=== PATIENT | female | born 1990 | race Caucasian/White ===

== ENCOUNTER 2022-05-11 11:08 | Emergency (ER) | payer SELFPAY ==
--- NOTE | ~2022-05-11 | XR_ITS ---
EXAMINATION: XR thoracic spine 3V DATE: 05/11/2022 12:52 INDICATION: Mid back pain post fall while rollerblading TECHNIQUE: One AP, lateral and lateral swimmer's views of the thoracic spine were obtained. COMPARISON: None. FINDINGS: 9 degrees levocurvature between T1 and T6. Sagittal alignment is normal. 20% anterior vertebral body height loss at T5 and 10% anterior vertebral body height loss at T6 consistent with age-indeterminate compression fractures. Remaining vertebral body heights are normal. Visualized portions of the lungs are clear with no pleural effusion or pneumothorax. Cardiomediastinal silhouette is normal. IMPRESSION: 1. Age-indeterminate T5 compression fracture with 20% anterior vertebral body height loss and at T6 w ith 10% anterior vertebral body height loss. Reviewed, dictated and finalized at location A. INFRASTRUCTURE ENGINEER IMPRESSION: 1. Age-indeterminate T5 compression fracture with 20% anterior vertebral body h eight loss and at T6 with 10% anterior vertebral body height loss.
--- NOTE | ~2022-05-11 | XR_ITS ---
EXAMINATION: XR elbow LT min 3V DATE: 05/11/2022 12:52 INDICATION: Radial head tenderness at the left elbow post fall while rollerblading TECHNIQUE: Anteroposterior, two oblique and lateral views of the left elbow were obtained. COMPARISON: None. FINDINGS: Alignment is normal. Subtle nondisplaced extra-articular fracture at the left radial head neck juncti on. Joint spaces are normal. There is an elbow joint effusion with displacement of the anterior and p osterior fat pads. Soft tissues are otherwise unremarkable. IMPRESSION: 1. Nondisplaced extra articular fracture at the left radial head neck junction which remains in anato taniya alignment. 2. Left elbow joint effusion. Reviewed, dictated and finalized at location A. ACTOR MACHINE OPERATOR IMPRESSION: 1. Nondisplaced extra articular fracture at the left radial head neck junction which remains in anatomic alignment. 2. Left elbow joint effusion.
[2022-05-11 11:10] VITALS: BP 145/87; PULSE 97; RESP 18; TEMP 37.7; O2SAT 100
[2022-05-11] MEDS: KETOROLAC 30 MG/ML VIAL (*BKC) IM (12:31)
--- NOTE | 2022-05-11 12:51 | ED.BACK ---
HPI - Back Pain/Injury General Chief Complaint: Back Pain/Injury Stated Complaint: back inj Time Seen by Provider: 05/11/22 12:00 History of Present Illness HPI Narrative: Patient is a 32-year-old female who presents ER with complaints of back pain and elbow pain. Patient was rollerblading this morning when she slipped and fell landing on the ground. She had sudden onset pain in her mid back. She also babatunde her elbow while she fell. No numbness or tingling in the arms or legs. Ambulatory without difficulty. Has increased pain with deep breath and with certain movements. Related Data Allergies Allergy/AdvReac Type Severity Reaction Status Date / Time amoxicillin Allergy Intermediate HIVES Verified 05/11/22 11:13 Review of Systems Review of Systems: All systems reviewed & are unremarkable except as noted in HPI and below Constitutional: Constitutional: Denies chills, Denies fatigue and Denies fever(s) Cardiovascular: Cardiovascular: Denies chest pain and Denies rapid heart rate Gastrointestinal: Gastrointestinal: Denies abdominal pain, Denies nausea and Denies vomiting Musculoskeletal: Musculoskeletal: Reports back pain, Reports arthralgias and Denies joint swelling Integumentary/Breasts: Skin/Breast: Denies erythema and Denies rash Neurologic: Denies syncope, Denies headache(s), Denies focal weakness and Denies numbness PMFSH Past Medical History Medical History (Updated 05/11/22 @ 14:11 by Froilan Zamora MD) Healthy female adult Surgical History Surgical History (Updated 05/11/22 @ 12:53 by Froilan Zamora MD) History of hip surgery Exam Narrative: GENERAL: Well-appearing, well-nourished, and in no acute distress. HEAD: Normocephalic, atraumatic. CHEST: Clear to auscultation. No respiratory distress. HEART: Regular rate and rhythm. Normal peripheral pulses. ABDOMEN: Soft, nontender, nondistended. Back: Tender palpation mid thoracic around T7 without step-off, no abrasion or bruising. No reproducible paraspinal muscular tenderness in the T/L-spine. No midline L-spine tenderness.. EXTREMITIES: Normal range of motion. No edema. Tender palpation over the left radial head but supination pronation preserved as are flexion extension at the elbow. SKIN: Warm, dry, no rash. NEURO: No focal deficits. Alert and oriented x3. PSYCH: Normal mood and affect. Course Vital Signs Vital signs: Vital Signs Temperature 100 F H 05/11/22 11:10 Pulse Rate 97 05/11/22 11:10 Respiratory Rate 18 05/11/22 11:10 Blood Pressure 145/87 H 05/11/22 11:10 Pulse Oximetry 100 05/11/22 11:10 Temperature 100 F H 05/11/22 11:10 Pulse Rate 97 05/11/22 11:10 Respiratory Rate 18 05/11/22 11:10 Blood Pressure 145/87 H 05/11/22 11:10 Pulse Oximetry 100 05/11/22 11:10 MDM - Back Pain/Injury Imaging Data Radiologist's impression: ITS Impressions Elbow X-Ray 05/11/22 12:54 IMPRESSION: 1. Nondisplaced extra articular fracture at the left radial head neck junction which remains in anatomic alignment. 2. Left elbow joint effusion. Thoracic Spine X-Ray 05/11/22 12:57 IMPRESSION: 1. Age-indeterminate T5 compression fracture with 20% anterior vertebral body height loss and at T6 with 10% anterior vertebral body height loss. Discharge Plan Discharge Clinical Impression: Vertebral compression fracture, Closed fracture of neck of left radius Patient Disposition: Home, Self-Care Condition: Stable Instructions: Elbow Fracture (ED), Vertebral Compression Fracture (ED) Additional Instructions: You have a nondisplaced fracture of the left radial neck. You were placed in sling for comfort. Follow-up with orthopedic surgery for further evaluation. Take Tylenol and ibuprofen as needed for pain. You have been given a small amount of Tylenol with hydrocodone to help with breakthrough pain. Additionally you have vertebral compression fracture at the T5/6 region of
== END 2022-05-11 14:39 | disposition home or self-care (01) ==
PROVIDERS: Emergency Provider Emergency Medicine
DX: S22.050A Wedge compression fracture of T5-T6 vertebra, initial encounter for closed fracture (principal); S52.135A Nondisplaced fracture of neck of left radius, initial encounter for closed fracture; V00.111A Fall from in-line roller-skates, initial encounter; Y93.51 Activity, roller skating (inline) and skateboarding
CPT/HCPCS: 72072; 73080; 96372; 99284; A4565; J1885

== ENCOUNTER → 2022-06-19 12:22 | Outpatient (CLI) | payer SELFPAY ==
--- NOTE | ~2022-06-19 | XR_ITS ---
Thoracic spine: Clinical Indication: T5-T6 fracture COMPARISON: 05/11/2022 AP and lateral views were performed. Mild compression deformity of what is probably T5 again noted. No subluxation identified. The interve rtebral disc spaces appear normal. Paravertebral soft tissues appear normal. Impression: Mild compression deformity superior endplate of what is probably T5, similar to prior exam. Reviewed, dictated and finalized at location . [employer] Impression: Mild compression deformity superior endplate of what is probably T5, similar to prior exam.
== END ==
PROVIDERS: PCP Nurse Practitioner Adult Health; Visit Provider Nurse Practitioner Adult Health
DX: S22.059A Unspecified fracture of T5-T6 vertebra, initial encounter for closed fracture (principal); X58.XXXA Exposure to other specified factors, initial encounter
CPT/HCPCS: 72070

== ENCOUNTER 2023-01-17 15:00 | Observation (INO) | payer OTHER, SELFPAY ==
[2023-01-17] VITALS (20 sets, daily range): BP systolic 109–136; BP diastolic 59–84; PULSE 91–115; RESP 12–25; TEMP 36.8–38.3; O2SAT 97–100; BMI 27.4
--- NOTE | ~2023-01-17 | XR_ITS ---
EXAMINATION: XR chest 2V Exam Date/Time: 01/17/2023 19:05 CDT HISTORY: dyspnea SOB WITH EXERTION SINCE YESTERDAY Comparison: None. RESULT: Lines, tubes, and devices: None. Lungs and pleura: Clear. Cardiomediastinal silhouette: Normal. Other: No acute osseous or upper abdominal finding. IMPRESSION: No acute cardiopulmonary process. Reviewed, dictated and finalized at location K.
--- NOTE | ~2023-01-17 | US_ITS ---
EXAMINATION: US renal BI DATE: 01/17/2023 22:29 INDICATION: pyelo TECHNIQUE: Multiple grayscale and Doppler ultrasound images of the kidneys were obtained. COMPARISON: None. FINDINGS: The right kidney measures 10.5 x 4.4 x 5.1 cm. The left kidney measures 10.3 x 4.9 x 6.0 cm. The kidn eys demonstrate normal parenchymal echogenicity. There is no hydronephrosis. The bladder is normal. IMPRESSION: Unremarkable renal sonogram findings. Reviewed, dictated and finalized at location K.
--- NOTE | 2023-01-17 15:26 | ECG_ITS ---
Measurements Intervals [place] Rate: 106 P: 24 NH: 117 QRS: 56 QRSD: 77 T: -24 QT: 327 QTc: 435 Interpretive Statements SINUS TACHYCARDIA WITH SHORT NH INTERVAL NONSPECIFIC ST & T-WAVE ABNORMALITY- ANTEROLAT/INF LEADS BASELINE ARTIFACT- I, II, III, AVR, AVL ABNORMAL ECG NO PREVIOUS ECG AVAILABLE FOR COMPARISON Electronically Signed On 01-17-2023 15:37:05 CDT by Dallas Hunt D.O.
[2023-01-17 15:48] LABS: Hematocrit 39.8 % (37.0-47.0); Hemoglobin 13.3 g/dL (12.0-15.0); Mean Corpuscular HGB Conc 33.4 g/dl (32-36); Mean Corpuscular Hemoglobin 29.6 pg (26-34); Mean Corpuscular Volume 88.6 fl (80-100); Mean Platelet Volume 9.2 fl (7.4-10.4); Platelet Count Result 324 k/mm3 (150-375); Red Blood Count 4.49 M/mm3 (4.2-5.4); White Blood Count 18.2 K/mm3 (4.5-10.0)
[2023-01-17 16:02] LABS: Alanine Aminotransferase 18 U/L (6-35); Albumin Level 4.7 g/dL (3.5-5.1); Alkaline Phosphatase 60 U/L (38-126); Anion Gap 9 mmol/L (8-16); Aspartate Amino Transferase 25 U/L (14-36); Bilirubin,Total 2.3 mg/dL (0.2-1.3); Blood Urea Nitrogen 14 mg/dL (7-17); Carbon Dioxide 24 mmol/L (22-30); Chloride 99 mmol/L (98-107); Estimated CRCL calculation 98 ml/min; Estimated Glomerular Filt Rate > 60; Glucose 99 mg/dL (65-110); Potassium 4.2 mmol/L (3.4-5.0); Sodium 132 mmol/L (137-145)
[2023-01-17 16:23] LABS: Band Neutrophils Percent 7 % (0-6); Monocytes Absolute Manual 0.18 K/mm3 (0.1-0.90); Monocytes Percent Manual 1 % (3-9); Neutrophils Absolute Manual 18.01 K/mm3 (1.7-7.2); Neutrophils Percent Manual 92 % (46-73); Platelet Estimate Adequate (Adequate); Schistocytes None Seen (NORMAL); Total Cells Counted 100
--- NOTE | 2023-01-17 17:21 | ED.GENADULT ---
HPI - General Adult General Chief complaint: Unspecified Stated complaint: SOB/vomiting/pre-syncope Time Seen by Provider: 01/17/23 16:38 History of Present Illness HPI narrative: Patient is a 32-year-old female who presents to the ER with fatigue and body aches. Patient was diagnosed with a UTI yesterday. She was started on Macrobid. She has been taking Azo. Dysuria has decreased. She then began feeling body aches as well as joint aches today. She feels slightly short of breath. She felt lightheaded as well. She has some mild aching into her back bilaterally left greater than right. She also experienced some vomiting. No alleviating factors. Related Data Allergies Allergy/AdvReac Type Severity Reaction Status Date / Time amoxicillin Allergy Intermediate HIVES Verified 01/17/23 15:01 Review of Systems Review of Systems: All systems reviewed & are unremarkable except as noted in HPI and below Constitutional: Constitutional: Denies chills, Reports fatigue and Reports fever(s) ENT: Denies nasal congestion and Denies sore throat Cardiovascular: Cardiovascular: Denies chest pain, Denies rapid heart rate and Denies radiating jaw, neck or arm pain Respiratory: Respiratory: Denies cough, Reports dyspnea and Denies wheezing Gastrointestinal: Gastrointestinal: Denies abdominal pain, Denies diarrhea, Reports nausea and Reports vomiting Genitourinary: Genitourinary: Reports nocturia, Reports dysuria, Denies pelvic pain and Reports flank pain Musculoskeletal: Musculoskeletal: Reports back pain, Reports arthralgias and Denies joint swelling PMFSH Past Medical History Medical History (Updated 01/17/23 @ 19:51 by Froilan Zamora MD) Compression fracture of T5 vertebra with routine healing Healthy female adult Surgical History Surgical History History of hip surgery Social History Social History Smoking status: Never smoker Exam Narrative: GENERAL: Well-appearing, well-nourished, and in no acute distress. HEAD: Normocephalic, atraumatic. EYES: PERRL and EOMI. ENT: Mucous membranes moist. CHEST: Clear to auscultation. No respiratory distress. HEART: Tachycardic and regular. Normal peripheral pulses. ABDOMEN: Soft, nontender, nondistended. No CVA tenderness. EXTREMITIES: Normal range of motion. No edema. SKIN: Warm, dry, no rash. NEURO: Alert and oriented x3. PSYCH: Normal mood and affect. Course Course Emergency Course: Admit for observation IV antibiotics. Patient with much more systemic symptoms of her UTI. Will start on IV antibiotics. Accepted by the hospitalist service. Vital Signs Vital signs: Vital Signs Temperature 98.2 F 01/17/23 15:22 Pulse Rate 112 H 01/17/23 15:22 Respiratory Rate 20 01/17/23 15:22 Blood Pressure 126/65 01/17/23 15:22 Pulse Oximetry 100 01/17/23 15:22 Oxygen Delivery Room Air 01/17/23 15:22 Temperature 101.0 F H 01/17/23 17:14 Pulse Rate 108 H 01/17/23 19:45 Respiratory Rate 20 01/17/23 19:45 Blood Pressure 109/59 L 01/17/23 19:45 Pulse Oximetry 97 01/17/23 19:45 Oxygen Delivery Room Air 01/17/23 15:22 Medical Decision Making Vital Signs Vital Signs: Vital Signs Temperature 98.2 F 01/17/23 15:22 Pulse Rate 112 H 01/17/23 15:22 Respiratory Rate 01/17/23 15:22 Blood Pressure 126/65 01/17/23 15:22 Pulse Oximetry 100 01/17/23 15:22 Oxygen Delivery Room Air 01/17/23 15:22 Temperature 101.0 F H 01/17/23 17:14 Pulse Rate 108 H 01/17/23 19:45 Respiratory Rate 01/17/23 19:45 Blood Pressure 109/59 L 01/17/23 19:45 Pulse Oximetry 97 01/17/23 19:45 Oxygen Delivery Room Air 01/17/23 15:22 Lab Data 01/17/23 15:38 01/17/23 15:38 Labs: Lab Results 01/17/23 01/17/23 Range/Units 15:38 17:40 WBC 18.2 H (4.5-10.0) K/mm3 RBC
[2023-01-17] MEDS: SODIUM CHLORIDE 0.9% IV 1,000 ML 999 ML IV CONT (17:31)
[2023-01-17] MEDS: ACETAMINOPHEN 325 MG TABLET 650 MG PO (17:31)
[2023-01-17 17:59] LABS: Lactic Acid Reflex 1.1 mmol/L (0.7-2.0)
[2023-01-17 18:26] LABS: Appearance Urine Clear (Clear); Bacteria Urine None Seen /hpf; Bilirubin Urine Negative (Negative); Blood Urine Negative (Negative); Color Urine Dark Yellow (Yellow); Glucose Urine UA Negative (Negative); Hyaline Casts Urine Present /lpf; Ketones Urine 2+ mg/dL (Negative); Leukocyte Esterase Ur Trace LEU/UL (Negative); Nitrate Urine Positive (Negative); Non Pathogenic Casts 0-2; Protein Urine Negative (Negative); RBC Urine 0-2 /hpf (0-2); Squamous Epithelial Cell Urine None seen /hpf (Few); WBC Urine 0-5 /hpf
[2023-01-17 18:28] LABS: Add Urine Microscopic? YES
[2023-01-17] MEDS: LACTATED RINGERS 1,000 ML 125 ML IV CONT (19:36)
--- NOTE | 2023-01-17 20:07 | PM.IMHP ---
H&P: HPI History of Present Illness Date/Time: 01/17/23 20:07 Chief Complaint: Nausea, fatigue a body aches and chills. Narrative: Patient is a 32-year-old female with no significant past medical history who presents to the ER with fatigue and body aches.? Patient was in her usual state of health until 2 days ago; she was diagnosed with a UTI yesterday.? She was started on Macrobid.? The addition, she had been taking Azo, with improvement of her dysuria. ? She then began feeling body aches as well as joint aches today.? She feels slightly short of breath.? She felt lightheaded as well.? She has some mild aching into her back bilaterally left greater than right.? She also experienced some bilious vomiting.? No alleviating factors. On arrival to the emergency department, the patient is presenting with the following vital signs: A temperature of 101.5? F, pulse rate 112, respiration 20, blood pressure 109/59-126/65, pulse oximetry 97-100% on room air. Her CBC shows a WBC of 18.2, hemoglobin 13.3, hematocrit 39.8 and a platelet count of 3 to 4. Her chemistry shows a sodium of 132, potassium of 4.2, chloride 99, bicarbonate 24, BUN 14, creatinine 0.7 and glucose 99. Urinalysis shows 2+ ketone, positive nitrate, trace leukocyte esterase, RBC 0-2, WBC 0-5, no bacteria. A renal ultrasound was unremarkable. Chest x-ray did not show any acute cardiopulmonary process. Patient was started on Rocephin and pain management. The hospital medicine service was consulted for evaluation and further management. Review of Systems Review of Systems: All systems reviewed & are unremarkable except as noted in HPI and below Constitutional: Constitutional: Denies chills, Reports fatigue and Reports fever(s) ENT: Denies nasal congestion and Denies sore throat Cardiovascular: Cardiovascular: Denies chest pain, Denies rapid heart rate and Denies radiating jaw, neck or arm pain Respiratory: Respiratory: Denies cough, Reports dyspnea and Denies wheezing Gastrointestinal: Gastrointestinal: Denies abdominal pain, Denies diarrhea, Reports nausea and Reports vomiting Genitourinary: Genitourinary: Reports nocturia, Reports dysuria, Denies pelvic pain and Reports flank pain Musculoskeletal: Musculoskeletal: Reports back pain, Reports arthralgias and Denies joint swelling [facility] Past Medical History Medical History Compression fracture of T5 vertebra with routine healing Healthy female adult Surgical History Surgical History History of hip surgery Social History Social History Smoking status: Never smoker Second hand tobacco smoke exposure: No Alcohol intake: current Drinks per week: 3 Substance use: never Substance use type: does not use Lack of Transportation: No Lack of Food: Never True Current Housing: I Have Housing Concerned About Future Housing: No Difficulty Paying Gas/Electric Bills: No Difficulty Paying for Meds: No Currently Unemployed: No Education: Bachelor's Degree Difficulty w/ Childcare or Family Care: No Spiritual care concerns: No Meds Home Medications and Allergies Home Medications Medication Instructions Recorded Confirmed Type nitrofurantoin 100 mg PO BID 01/17/23 01/17/23 History monohydrate/macrocrystals 100 mg capsule norgestimate-ethinyl estradiol 1 tablet PO DAILY 01/17/23 01/17/23 History 0.18 mg/0.215mg/0.25mg-35 mcg(28)tablet Allergies Allergy/AdvReac Type Severity Reaction Status Date / Time amoxicillin Allergy Intermediate HIVES Verified 01/17/23 15:01 Vital Signs Vital Signs - 24 hr 01/17/23 15:22 01/17/23 16:26 01/17/23 16:28 Temperature 98.2 F Pulse Rate 112 H 110 H 114 H Respiratory Rate 20 Blood Pressure 126/65 121/61 128/74 Pulse Oximetry 100 Oxygen Delivery Room Air 01/17/23
[2023-01-17] MEDS: HYDROcodone/acetaminophen (*CRX) 5-325 MG TABLET 1 TAB PO (22:42)
[2023-01-18] MEDS: LACTATED RINGERS 1,000 ML 125 ML IV CONT ×3 (03:54→20:58)
[2023-01-18 06:00] VITALS: BP 134/56; PULSE 105; RESP 14; TEMP 37.1; O2SAT 99
[2023-01-18 06:20] LABS: Hematocrit 36.2 % (37.0-47.0); Hemoglobin 12.1 g/dL (12.0-15.0); Mean Corpuscular HGB Conc 33.4 g/dl (32-36); Mean Corpuscular Hemoglobin 29.8 pg (26-34); Mean Corpuscular Volume 89.2 fl (80-100); Mean Platelet Volume 9.6 fl (7.4-10.4); Platelet Count Result 271 k/mm3 (150-375); Red Blood Count 4.06 M/mm3 (4.2-5.4); Red Cell Distribution Width 12.1 % (11.5-14.5); White Blood Count 14.9 K/mm3 (4.5-10.0)
[2023-01-18 06:35] LABS: Anion Gap 6 mmol/L (8-16); Blood Urea Nitrogen 8 mg/dL (7-17); Calcium 8.5 mg/dL (8.4-10.2); Carbon Dioxide 23 mmol/L (22-30); Chloride 105 mmol/L (98-107); Estimated CRCL calculation 113 ml/min; Estimated Glomerular Filt Rate > 60; Glucose 118 mg/dL (65-110); Sodium 134 mmol/L (137-145)
[2023-01-18 08:43] LABS: Vitamin D 25 Hydroxy 40.7 ng/mL
[2023-01-18] MEDS: ENOXAPARIN 40 MG/0.4 ML SYRINGE SUB-Q (09:09)
[2023-01-18] MEDS: ACETAMINOPHEN 325 MG TABLET 650 MG PO ×2 (09:15→20:57)
--- NOTE | 2023-01-18 09:20 | PM.IMPN ---
Progress Note: A&P Assessment and Plan (1) Pyelonephritis: Code(s): N12 - Tubulo-interstitial nephritis, not specified as acute or chronic Status: Acute Assessment and Plan: Patient reports back pain and CVA tenderness are improving. The fever has broke patient feels better. Mild nausea but no vomiting. Continue IV fluids continue Rocephin pending urine culture blood cultures. Repeat labs in the a.m. upon discharge will stop nitrofurantoin and prescribed antibiotics with better renal penetration. (2) Compression fracture of T5 vertebra with routine healing: Code(s): S22.050D - Wedge compression fracture of T5-T6 vertebra, subsequent encounter for fracture with routine healing Status: Acute Assessment and Plan: Patient aware of wedge compression fracture stated it was acute event in May last year. Vitamin D normal. Time Spent With Patient Time with patient: 25 - 35 minutes Subjective Date/time seen: 01/18/23 08:15 Interval history: 01/18 Rounding: This is a 32-year-old female patient admitted to the hospital due to urinary tract infection with CVA tenderness, fever, tachycardia, elevated white blood cell count. Patient has normal lactic acid. Blood cultures drawn and are pending. Urine culture is pending. Patient is on Rocephin IV. IV fluids. Patient complains of nausea without vomiting states that it is better today than it was yesterday. She reports mild left flank pain with mild bilateral CVA tenderness on exam. Renal ultrasound unremarkable. Review of Systems Review of Systems: All systems reviewed & are unremarkable except as noted in HPI and below Exam Narrative: GENERAL: Well-appearing, well-nourished, and in no acute distress. HEAD: Normocephalic, atraumatic. EYES: PERRL and EOMI. ENT: Mucous membranes moist. CHEST: Clear to auscultation. No respiratory distress. HEART: Tachycardic and regular. Normal peripheral pulses. ABDOMEN: Soft, nontender, nondistended. Bilateral CVA tenderness. EXTREMITIES: Normal range of motion. No edema. SKIN: Warm, dry, no rash. NEURO: Alert and oriented x3. PSYCH: Normal mood and affect. Objective Data Vital Signs Vital Signs: Vital Signs - 24 hr 01/17/23 15:22 01/17/23 16:26 01/17/23 16:28 Temperature 36.8 C Pulse Rate 112 H 110 H 114 H Respiratory Rate 20 Blood Pressure 126/65 121/61 128/74 Pulse Oximetry 100 Oxygen Delivery Room Air 01/17/23 16:29 01/17/23 16:44 01/17/23 16:54 Temperature Pulse Rate 115 H 101 H 110 H Respiratory Rate 13 15 Blood Pressure 111/73 Pulse Oximetry 100 100 Oxygen Delivery 01/17/23 17:14 01/17/23 18:14 01/17/23 17:00 Temperature 38.3 C H Pulse Rate 102 H 107 H 109 H Respiratory Rate 18 15 22 H Blood Pressure 128/84 125/67 Pulse Oximetry 100 100 99 Oxygen Delivery 01/17/23 17:01 01/17/23 17:37 01/17/23 17:45 Temperature Pulse Rate 106 H 112 H 100 Respiratory Rate 22 H 19 12 Blood Pressure 128/84 Pulse Oximetry 100 100 Oxygen Delivery 01/17/23 18:13 01/17/23 18:14 01/17/23 18:15 Temperature Pulse Rate 111 H 111 H 91 Respiratory Rate 19 13 14 Blood Pressure 125/67 Pulse Oximetry 99 99 99 Oxygen Delivery 01/17/23 18:30 01/17/23 18:31 01/17/23 18:47 Temperature Pulse Rate 111 H 113 H 110 H Respiratory Rate 22 H 25 H 20 Blood Pressure 136/74 Pulse Oximetry 98 99 97 Oxygen Delivery 01/17/23 19:45 01/17/23 20:18 01/17/23 21:30 Temperature 36.8 C Pulse Rate 108 H 110 H 100 Respiratory Rate 20 14 16 Blood Pressure 109/59 L 115/68 116/65 Pulse Oximetry 97 97 99 Oxygen Delivery 01/18/23 06:00 Temperature 37.1 C Pulse Rate 105 H Respiratory Rate 14 Blood Pressure 134/56 L Pulse Oximetry 99 Oxygen Delivery Intake/Output Intake/Output: Intake & Output 01/15/23 01/16/23 01/17/23 01/18/23 23:59 23:59 23:59 23:59 Intake Total 1050 1240 Output Total 350 1600 Balance 700 -36
[2023-01-18 14:00] VITALS: BP 110/76; PULSE 93; RESP 18; TEMP 36.1; O2SAT 99
[2023-01-18 22:00] VITALS: BP 112/82; PULSE 90; RESP 16; TEMP 36.6; O2SAT 100
[2023-01-19 06:00] VITALS: BP 112/80; PULSE 88; RESP 16; TEMP 36.4; O2SAT 98
[2023-01-19 07:38] LABS: Hematocrit 34.9 % (37.0-47.0); Hemoglobin 11.5 g/dL (12.0-15.0); Mean Corpuscular Hemoglobin 29.8 pg (26-34); Mean Corpuscular Volume 90.4 fl (80-100); Mean Platelet Volume 9.7 fl (7.4-10.4); Platelet Count Result 273 k/mm3 (150-375); Red Blood Count 3.86 M/mm3 (4.2-5.4); Red Cell Distribution Width 12.3 % (11.5-14.5); White Blood Count 6.7 K/mm3 (4.5-10.0)
[2023-01-19 07:53] LABS: Alanine Aminotransferase 16 U/L (6-35); Albumin Level 3.8 g/dL (3.5-5.1); Alkaline Phosphatase 53 U/L (38-126); Anion Gap 4 mmol/L (8-16); Aspartate Amino Transferase 22 U/L (14-36); Bilirubin,Total 0.5 mg/dL (0.2-1.3); Blood Urea Nitrogen 7 mg/dL (7-17); Calcium 8.5 mg/dL (8.4-10.2); Carbon Dioxide 28 mmol/L (22-30); Chloride 105 mmol/L (98-107); Estimated CRCL calculation 113 ml/min; Estimated Glomerular Filt Rate > 60; Glucose 89 mg/dL (65-110); Potassium 4.1 mmol/L (3.4-5.0); Sodium 137 mmol/L (137-145)
[2023-01-19] MEDS: ENOXAPARIN 40 MG/0.4 ML SYRINGE SUB-Q (08:41)
--- NOTE | 2023-01-19 09:47 | PM.DS ---
DS: Admitting Diagnosis Discharge Date 01/19/2023 Admitting Diagnosis Pyelonephritis Compression fracture of T5 vertebra with routine healing DS: Discharge Diagnosis Discharge Diagnosis (1) Pyelonephritis: Code(s): N12 - Tubulo-interstitial nephritis, not specified as acute or chronic Status: Acute (2) Compression fracture of T5 vertebra with routine healing: Code(s): S22.050D - Wedge compression fracture of T5-T6 vertebra, subsequent encounter for fracture with routine healing Status: Acute DS: Summary Hospital Course Reason for hospitalization: This is a previously healthy 32-year-old female patient admitted to the hospital due to pyelonephritis worsening on oral antibiotics. Hospital Course: Patient had started treatment for urinary tract infection with Macrobid 2 days prior to hospitalization but she began to 50 fever and back pain worse on the left flank. Patient was also found to white blood cell rate bili. Lactic acid was normal. Blood cultures were no growth to date. Patient received IV fluids IV Rocephin he with significant improvement. Patient no longer experiencing back pain fever chills. She is back to baseline status. Vital signs stable. Patient has no nausea no vomiting tolerating full diet. Antibiotics changed to cefdinir and patient received 1st dose prior to discharge. Status at Discharge Cognitive/behavioral status at discharge: Awake, alert, oriented and pleasant Functional status at discharge: independent ambulation Overall status at discharge: patient is back to baseline Time Spent with Patient Time attestation: Total time spent providing and/or coordinating discharge services: Time spent: Less than 30 minutes Exam Narrative: GENERAL: Well-appearing, well-nourished, and in no acute distress. HEAD: Normocephalic, atraumatic. EYES: PERRL and EOMI. ENT: Mucous membranes moist. CHEST: Clear to auscultation. No respiratory distress. HEART: Tachycardic and regular. Normal peripheral pulses. ABDOMEN: Soft, nontender, nondistended. Bowel sounds present in all quadrants. No CVA tenderness. No bladder tenderness. EXTREMITIES: Normal range of motion. No edema. SKIN: Warm, dry, no rash. NEURO: Alert and oriented x3. PSYCH: Normal mood and affect. DS: Data Data Completed and Pending Labs on day of discharge: Labs from last 24 hours 01/19/23 01/18/23 01/17/23 05:00 05:56 17:40 WBC 6.7 RBC 3.86 L Hgb 11.5 L Hct 34.9 L MCV 90.4 MCH 29.8 MCHC 33.0 RDW 12.3 Plt Count 273 MPV 9.7 Total Counted Neutrophils % (Manual) Band Neutrophils % Monocytes % (Manual) Abs Neuts (Manual) Abs Monocytes (Manual) Platelet Estimate Schistocytes Sodium 137 Potassium 4.1 Chloride 105 Carbon Dioxide 28 Anion Gap 4 L BUN 7 Creatinine 0.60 L Estim Creat Clear Calc 113 Estimated GFR > 60 Glucose 89 Calcium 8.5 Total Bilirubin 0.5 AST 22 ALT 16 Alkaline Phosphatase 53 Total Protein 7.0 Albumin 3.8 Vitamin D 25-Hydroxy 40.7 Urine Color Dark yellow Urine Appearance Clear Urine pH 5.0 Ur Specific [place] 1.010 Urine Protein Negative Urine Glucose (UA) Negative Urine Ketones 2+ H Ur Blood (Man) Negative Urine Nitrate Positive H Urine Bilirubin Negative Urine Urobilinogen 1.0 Leukocyte Esterase Rfl Trace H Urine RBC 0-2 Urine WBC 0-5 Ur Squamous Epith Cells None seen Urine Bacteria None seen Urine Casts 0-2 Hyaline Casts Present 01/17/23 15:38 WBC 18.2 H RBC 4.49 Hgb 13.3 Hct 39.8 MCV 88.6 MCH 29.6 MCHC 33.4 RDW 12.0 Plt Count 324 MPV 9.2 Total Counted 100 Neutrophils % (Manual) 92 H Band Neutrophils % 7 H Monocytes % (Manual) 1 L Abs Neuts (Manual) 18.01 H Abs Monocytes (Manual) 0.18 Platelet Estimate Adequate Schistocytes None seen Sodium Potassium Chloride Carbon Dioxid
[2023-01-19] MEDS: CEFDINIR 300 MG CAPSULE PO (11:19)
--- NOTE | 2023-01-23 09:44 | PC.NURSE ---
Blood cultures are negative.
== END 2023-01-19 13:10 | disposition home or self-care (01) ==
LOC: ANHED 19:51 → ANH3MEDSUR 20:17
PROVIDERS: Emergency Medicine; Internal Medicine; Nurse Practitioner; Admitting Provider Internal Medicine; Emergency Provider Emergency Medicine; PCP Nurse Practitioner Family; Visit Provider Internal Medicine
DX: N12 Tubulo-interstitial nephritis, not specified as acute or chronic (principal); S22.050D Wedge compression fracture of T5-T6 vertebra, subsequent encounter for fracture with routine healing; N39.0 Urinary tract infection, site not specified; R53.83 Other fatigue; M79.10 Myalgia, unspecified site; D72.829 Elevated white blood cell count, unspecified; R00.0 Tachycardia, unspecified; R94.31 Abnormal electrocardiogram [ECG] [EKG]; Z79.899 Other long term (current) drug therapy
CPT/HCPCS: 36415; 71046; 76775; 80048; 80053; 81001; 81025; 82306; 83605; 85025; 85027; 87040; 93005; 96361; 96365; 96372; 99285; A9270; G0378; J0696; J1650; J7030; J7120